=== PATIENT | female | born 2000 | race Caucasian/White ===

== ENCOUNTER 2020-05-22 20:25 | Observation (INO) ==
[2020-05-22] MEDS ORDERED: Gadolinium Contrast Agent (WT Based) IV PRN (21:29)
[2020-05-22] MEDS ORDERED: *HR* FentaNYL (PF) 100 MCG/2 ML VIAL IVP ONE ×2 (21:30→23:48)
[2020-05-22] MEDS ORDERED: 0.9 % Sodium Chloride 1,000 ML IVC ONE (21:31)
[2020-05-22 22:14] LABS: Basophils % 0.1 %; Hemoglobin 11.2 g/dL (11.5-15.4); Immature Granulocytes % 0.4 % (0-4); Lymphocytes # 0.4 K/mcL (0.6-4.6); Mean Corpuscular HGB Conc 32.9 g/dL (31.6-35.5); Mean Corpuscular Hemoglobin 29.5 pg (28.0-33.3); Mean Corpuscular Volume 89.5 fL (83.0-100.0); Mean Platelet Volume 8.1 fL (9.4-12.4); Monocytes # 0.3 K/mcL (0.0-1.3); Monocytes % 2.4 %; Neutrophils # 9.6 K/mcL (1.6-8.9); Platelet Count 128 K/mcL (140-400); Red Cell Distribution Width 14.6 % (11.5-14.5); Segmented Neutrophils % 93.1 %; White Blood Count 10.3 K/mcL (4.3-11.1)
[2020-05-22 22:34] LABS: BUN/Creatinine Ratio 24 (6-26); Blood Urea Nitrogen 11 mg/dL (6-20); Calcium 8.3 mg/dL (8.6-10.3); Carbon Dioxide 17 mEq/L (23-29); Chloride 108 mEq/L (98-107); Glucose 131 mg/dL (70-105); Osmolality,Calculated 281 (280-300); Potassium 3.3 mEq/L (3.5-5.1); Sodium 135 mEq/L (136-145); eGFR For African Americans > 60; eGFR For Non-African Americans > 60
[2020-05-22 23:52] LABS: VBG HCO3 17 mEq/L (21-27); VBG PCO2 31 mmHg (41-51); VBG PH 7.36 pH Units (7.32-7.42); VBG PO2 218 mmHg (25-50)
[2020-05-23] MEDS ORDERED: Ringers Solution, Lactated 1,000 ML ONE ×3 (01:29→18:32)
[2020-05-23] MEDS ORDERED: *HR* FentaNYL (PF) 100 MCG/2 ML VIAL IVP ONE (01:48)
[2020-05-23] MEDS ORDERED: miSOPROStoL 100 MCG TABLET PO ONE (01:52)
[2020-05-23] MEDS ORDERED: Ringers Solution, Lactated 1,000 ML IVC SCH ×2 (02:00→11:00)
[2020-05-23] MEDS ORDERED: Ibuprofen 600 MG TABLET PO PRN ×2 (03:54→10:59)
[2020-05-23] MEDS ORDERED: Metoclopramide 10 MG/2 ML VIAL ONE (09:25)
[2020-05-23] MEDS ORDERED: Famotidine 20 MG/2 ML VIAL ONE (09:25)
[2020-05-23] MEDS ORDERED: Famotidine 20 MG/2 ML VIAL IVP STA (09:26)
[2020-05-23] MEDS ORDERED: Metoclopramide 10 MG/2 ML VIAL IVP STA (09:26)
[2020-05-23] MEDS ORDERED: Dexamethasone 4 MG/ML VIAL ONE (09:28)
[2020-05-23] MEDS ORDERED: Ondansetron 4 MG/2 ML VIAL ONE (09:28)
[2020-05-23] MEDS ORDERED: Lidocaine -MPF 2% 5 ML VIAL ONE (09:28)
[2020-05-23] MEDS ORDERED: *HR* Propofol 200 MG/20 ML VIAL IVP ONE (09:30)
[2020-05-23 09:34] LABS: Hematocrit 30.4 % (35.3-44.9); Hemoglobin 10.1 g/dL (11.5-15.4); Mean Corpuscular HGB Conc 33.2 g/dL (31.6-35.5); Mean Corpuscular Hemoglobin 29.9 pg (28.0-33.3); Mean Corpuscular Volume 89.9 fL (83.0-100.0); Mean Platelet Volume 8.3 fL (9.4-12.4); Platelet Count 133 K/mcL (140-400); Red Blood Count 3.38 M/mcL (3.82-4.97); Red Cell Distribution Width 14.6 % (11.5-14.5)
[2020-05-23] MEDS ORDERED: *HR* FentaNYL (PF) 100 MCG/2 ML VIAL ONE (09:49)
[2020-05-23] MEDS ORDERED: *HR* Oxytocin 10 UNIT/ML VIAL IM ONE ×2 (10:15→10:21)
[2020-05-23] MEDS ORDERED: Doxycycline 100 MG in 0.9 % Sodium Chloride Mini Bag 100 ML IVPB SCH ×2 (11:00→18:00)
[2020-05-23] MEDS ORDERED: Rho Immune Globulin 1,500 UNIT SYRINGE IM ONE (11:42)
[2020-05-23 19:43] VITALS: BP 82/48
[2020-05-23] MEDS ORDERED: Methylergonovine 0.2 MG/ML AMPUL IM ONE (21:14)
== END 2020-05-23 21:15 | disposition home or self-care (01) ==
LOC: EMEROOARM 20:25 → 1NENULAB 20:25 → 1NENUPED 05-23 13:38
PROVIDERS: ADMIT Obstetrics & Gynecology; ATTEND Obstetrics & Gynecology

== ENCOUNTER 2022-03-21 02:19 | Inpatient (IN) ==
[2022-03-21 16:14] LABS: Influenza A PCR Negative (Negative); Influenza B PCR Negative (Negative); Resp. Syncytial Virus PCR Negative (Negative)
[2022-03-21 16:15] LABS: SARS-CoV-2 by PCR (In House) Negative (Negative)
[2022-03-21] MEDS ORDERED: haloperidoL 5 MG TABLET PO PRN (17:11)
[2022-03-21] MEDS ORDERED: Haloperidol Lactate 5 MG/ML VIAL IM PRN (17:11)
[2022-03-21] MEDS ORDERED: traZODone 50 MG TABLET PO PRN (17:11)
[2022-03-21] MEDS ORDERED: *HR* LORazepam 2 MG/ML VIAL IM PRN (17:11)
[2022-03-21] MEDS ORDERED: *HR* LORazepam 1 MG TABLET PO PRN (17:11)
[2022-03-21] MEDS ORDERED: hydrOXYzine pamoate 25 MG CAPSULE PO PRN (17:11)
[2022-03-21] MEDS ORDERED: Acetaminophen 325 MG TABLET PO PRN (17:11)
[2022-03-22 13:14] LABS: Thyroid Stimulating Hormone 2.232 mcIU/mL (0.340-5.600)
[2022-03-22 13:23] LABS: Estimated Average Glucose 97 mg/dl
[2022-03-22] MEDS: FLUoxetine HCl Oral Soln 20 MG/5 ML UDC PO SCH (21:13)
[2022-03-23] MEDS: FLUoxetine HCl Oral Soln 20 MG/5 ML UDC PO SCH (21:12)
[2022-03-24] MEDS: *HR* LORazepam 0.5 MG TABLET PO SCH ×3 (14:33→21:37)
[2022-03-24] MEDS: FLUoxetine HCl Oral Soln 20 MG/5 ML UDC PO SCH (21:36)
[2022-03-25] MEDS: *HR* LORazepam 0.5 MG TABLET PO SCH (08:38)
[2022-03-25 09:08] VITALS: BP 120/56; PULSE 74; TEMP 97.7; O2SAT 97
[2022-03-25] MEDS ORDERED: *HR* LORazepam 0.5 MG TABLET PO SCH ×2 (21:00)
== END 2022-03-25 15:56 | disposition home or self-care (01) | DRG 754 ==
LOC: EMEROOARM 02:19 → 1ANU 16:35 → SUATTDRO 16:35 → 1ANU 18:13
PROVIDERS: ADMIT Psychiatry & Neurology Psychiatry; ATTEND Psychiatry & Neurology Forensic Psychiatry

== ENCOUNTER 2022-04-12 08:46 | Inpatient (IN) ==
[2022-04-12 09:34] LABS: Bilirubin,Urine Negative (Negative); Blood,Urine Trace (Negative); Clarity,Urine Turbid (Clear); Color,Urine Light-Yellow (Yellow); Glucose,Urine (UA) Normal (Normal); Ketones,Urine Negative (Negative); Leukocyte Esterase,Urine Negative (Negative); Mucus,Urine Few per lpf (None-Few); Nitrite,Urine Negative (Negative); Protein,Urine Negative (Neg-Trace); Specific Gravity,Urine 1.017 (1.010-1.025); Squamous Epithelial Cell,Urine Few per hpf (None-Few); Urobilinogen,Urine Normal (Normal)
[2022-04-13 11:23] LABS: Influenza A PCR Negative (Negative); Influenza B PCR Negative (Negative); Resp. Syncytial Virus PCR Negative (Negative)
[2022-04-13 11:31] LABS: SARS-CoV-2 by PCR (In House) Negative (Negative)
[2022-04-13] MEDS ORDERED: *HR* LORazepam 1 MG TABLET PO PRN (13:03)
[2022-04-13] MEDS ORDERED: Ibuprofen 400 MG TABLET PO PRN (13:03)
[2022-04-13] MEDS ORDERED: Mag Hydrox/Al Hydrox/Simeth 30 ML UDC PO PRN (13:03)
[2022-04-13] MEDS ORDERED: Acetaminophen 325 MG TABLET PO PRN (13:03)
[2022-04-13] MEDS ORDERED: hydrOXYzine pamoate 25 MG CAPSULE PO PRN (13:03)
[2022-04-13] MEDS ORDERED: MOM Conc 10 ML UD.LIQ PO PRN (13:03)
[2022-04-13] MEDS ORDERED: *HR* LORazepam 2 MG/ML VIAL IM PRN (13:03)
[2022-04-13] MEDS: FLUoxetine HCl Oral Soln 20 MG/5 ML UDC PO SCH (15:39)
[2022-04-13] MEDS: *HR* LORazepam 0.5 MG TABLET PO SCH (21:54)
[2022-04-14] MEDS: *HR* LORazepam 0.5 MG TABLET PO SCH ×2 (09:33→20:53)
[2022-04-14] MEDS: FLUoxetine HCl Oral Soln 20 MG/5 ML UDC PO SCH (09:34)
[2022-04-14] MEDS ORDERED: Permethrin Cream Rinse 60 ML LIQUID TP ONE (16:17)
[2022-04-15] MEDS: *HR* LORazepam 0.5 MG TABLET PO SCH ×2 (08:39→20:25)
[2022-04-15] MEDS: FLUoxetine HCl Oral Soln 20 MG/5 ML UDC PO SCH (08:40)
[2022-04-16] MEDS: FLUoxetine HCl Oral Soln 20 MG/5 ML UDC PO SCH (08:48)
[2022-04-16] MEDS: *HR* LORazepam 0.5 MG TABLET PO SCH ×2 (08:49→20:23)
[2022-04-16] MEDS ORDERED: Permethrin CRM 60 GM TUBE TP ONE (17:29)
[2022-04-16] MEDS ORDERED: Permethrin Cream Rinse 60 ML LIQUID TP ONE (18:00)
[2022-04-17] MEDS: *HR* LORazepam 0.5 MG TABLET PO SCH ×2 (08:53→20:45)
[2022-04-17] MEDS: FLUoxetine HCl Oral Soln 20 MG/5 ML UDC PO SCH (08:54)
[2022-04-18] MEDS: FLUoxetine HCl Oral Soln 20 MG/5 ML UDC PO SCH (08:28)
[2022-04-18] MEDS: *HR* LORazepam 0.5 MG TABLET PO SCH (08:29)
[2022-04-18 09:05] VITALS: BP 96/60; PULSE 85; TEMP 98.7; O2SAT 92
== END 2022-04-18 11:20 | disposition home or self-care (01) | DRG 757 ==
LOC: EMEROOARM 08:46 → 1ANU 04-13 13:00 → INTOOBSV 04-13 13:00 → 1ANU 04-13 13:35
PROVIDERS: ADMIT Psychiatry & Neurology Forensic Psychiatry; ATTEND Psychiatry & Neurology Forensic Psychiatry